=== PATIENT | female | born 1975 | race Caucasian/White ===

== ENCOUNTER 2018-02-11 10:29 | Emergency (ER) | payer MEDICARE ==
--- NOTE | 2018-02-11 11:42 | RAD ---
LEFT FOOT THREE VIEWS: History: Left foot pain. FINDINGS: Lisfranc joint alignment is anatomic. Plantar arch maintained. Mild osteophytosis throughout the foot . Mild hallux valgus and bunion deformity . IMPRESSION: Mild hallux valgus and bunion deformity. No acute osseous abnormalities are demonstrated. POS: [facility]
== END 2018-02-11 11:42 | disposition home or self-care (01) ==
LOC: ERS 10:29
DX: S93.602A Unspecified sprain of left foot, initial encounter (principal); F17.210 Nicotine dependence, cigarettes, uncomplicated; F41.9 Anxiety disorder, unspecified; Z79.899 Other long term (current) drug therapy; W22.8XXA Striking against or struck by other objects, initial encounter